=== PATIENT | female | born 1945 | race Caucasian/White ===

== ENCOUNTER 2019-10-04 15:59 | Inpatient (IN) | payer MEDICARE, MEDICAID, SELFPAY ==
[2019-10-04] VITALS (22 sets, daily range): BP systolic 89–141; BP diastolic 54–78; PULSE 91–115; RESP 23–40; TEMP 36.6–37.9; O2SAT 79–100
--- NOTE | ~2019-10-04 | XR_ITS ---
EXAMINATION: XR chest 1V portable DATE: 10/04/2019 17:35 INDICATION: Shortness of breath. TECHNIQUE: frontal view of the chest was obtained. COMPARISON: Chest radiograph dated 09/17/2017 FINDINGS: There are new increased indistinct interstitial pattern in the right mid to lower and left lower lung zones. No pleural effusion or pneumothorax. The cardiomediastinal silhouette is normal. Old healed r ight clavicle fracture deformity. IMPRESSION: 1. Bilateral lower lung predominant increased interstitial pattern, right greater than left which cou ld represent asymmetric pulmonary edema or pneumonia. Reviewed, dictated and finalized at location A. COMPRESSOR TURBINE OPERATOR IMPRESSION: 1. Bilateral lower lung predominant increased interstitial pattern, right great er than left which could represent asymmetric pulmonary edema or pneumonia.
--- NOTE | ~2019-10-04 | CT_ITS ---
EXAMINATION: CT cervical spine wo con DATE: 10/07/2019 10:57 INDICATION: Patient fell. Head trauma. TECHNIQUE: Computed tomography (CT) of the cervical spine was performed without intravenous contrast. Automated exposure control and iterative reconstruction technique were employed. Exam dose: 218.85 mGy-cm total exam DLP. COMPARISON: None FINDINGS: Examination is limited by motion. C1 and C2 are normally aligned and the odontoid process is intact. No fracture or dislocation or lock ed facet or prevertebral soft tissue swelling is evident. There is moderate degenerative disease at C4-5, moderately severe degenerative disease at C5-6. There is degenerative change at the apophyseal joints throughout the cervical spine and at the uncovertebr al joints at C4-5 and particularly C5-6. . IMPRESSION: Limited examination due to motion Degenerative changes No fracture or dislocation detected Reviewed, dictated and finalized at Location A. Reviewed, dictated and finalized at location A. ER BUFFER
--- NOTE | ~2019-10-04 | CT_ITS ---
EXAMINATION: CT brain wo con DATE: 10/07/2019 10:58 INDICATION: Fall. Head trauma. Dimension. Frequent headaches. TECHNIQUE: Computed tomography (CT) of the head was performed without intravenous contrast. The mA wa s adjusted according to patient size. Iterative reconstruction technique was employed. Exam dose: 60 5.33 mGy-cm total exam DLP. COMPARISON: 09/17/2019 CT brain FINDINGS: The examination is mildly limited by motion artifact. No intracranial mass lesion or hemorrhage or cerebrovascular accident, midline shift shift or mass ef fect is detected. No subdural or epidural hematoma. There is central and cortical cerebral atrophy. Bilateral carotid siphon internal carotid artery calcifications. Nonspecific diminished attenuation o f the cerebral white matter is likely due to chronic small vessel ischemic changes. No orbital mass lesion. Fluid level of left maxillary sinus. Mild mucoperiosteal thickening of the right maxillary sinus. Pro minent opacification of ethmoid air cells is noted bilaterally. There are fluid levels in both spheno id sinuses. The frontal sinuses are not developed. The mastoid air cells are normally developed and aerated IMPRESSION: Central and cortical cerebral atrophy Cerebral atherosclerosis and chronic small vessel ischemic changes of the cerebral white matter No acute intracranial finding No evidence of skull fracture Pansinusitis Reviewed, dictated and finalized at Location A. Reviewed, dictated and finalized at location A. R OPERATOR IMPRESSION: Central and cortical cerebral atrophy Cerebral atherosclerosis and chronic small vessel ischemic changes of the cereb ral white matter No acute intracranial finding No evidence of skull fracture Pansinusitis
--- NOTE | 2019-10-04 16:33 | ED.SOB ---
HPI - SOB/Dyspnea General Chief Complaint: Shortness of Breath/Dyspnea Stated Complaint: difficulty breathing Time Seen by Provider: 10/04/19 16:28 Source: patient, RN notes reviewed, old records reviewed and other (ED nurse) Mode of arrival: EMS Limitations: clinical condition History of Present Illness HPI Narrative: Pt is a 74 y/o female presenting to the ED via EMS c/o SOB. ED nurse reports the pt has been SOB since 1500 at her residence of [facility]. Pt's nurse states the pt was satting in the 70's earlier today in the ED and was placed on a non-rebreather by EMS. Per nurse, the pt has a Hx of COPD and is a Full Code. Per nurse, the pt is not normally on O2 at home. Pt also reports cough. Pt's nurse states the pt has had a UTI that has been unable to be resolved for months. Old medical records reveal the pt has Hx's of Dementia and Anxiety. HPI is limited due to pt's clinical condition. Most information provided by ED nurse and old medical records. Pertinent past history: COPD Onset (ago): hour(s) (1.5) Associated symptoms: cough Treatment prior to arrival: oxygen Related Data Home Medications Medication Instructions Recorded Confirmed Dulera 2 puff INHALATION BID 07/01/19 09/17/19 Lexapro 20 mg PO DAILY 07/01/19 09/17/19 divalproex 250 mg PO TID 07/01/19 09/17/19 donepezil 10 mg PO DAILY 07/01/19 09/17/19 memantine 10 mg PO BID 07/01/19 09/18/19 Spiriva Respimat 1 inh INHALATION QAM 07/23/19 09/17/19 acetaminophen [Tylenol Extra 1,000 mg PO TID 07/23/19 09/17/19 Strength] lidocaine [Lidoderm] 1 patch TOPICAL DAILY 07/23/19 09/18/19 lorazepam [Ativan] 1 mg PO Q6H PRN 07/23/19 09/18/19 naproxen [Naprosyn] 500 mg PO DAILY 07/23/19 09/17/19 Lactobacillus acidophilus 10/04/19 10/04/19 [Acidophilus] buspirone 10 mg PO BID 10/04/19 pneumococcal 23-chaparrita ps vaccine 0.5 ml IM ONCE 10/04/19 [Pneumovax 23] Allergies Allergy/AdvReac Type Severity Reaction Status Date / Time No Known Allergies Allergy Verified 09/16/19 18:22 Review of Systems Review of Systems: Narrative: ROS is limited due to pt's clinical condition. Most information provided by ED nurse. All systems reviewed & are unremarkable except as noted in HPI and below Respiratory: Respiratory: Reports cough and Reports dyspnea PMFSH Past Medical History Medical History (Updated 10/04/19 @ 19:30 by Randal Tamayo MD) Anxiety COPD (chronic obstructive pulmonary disease) Dementia Depression IBS (irritable bowel syndrome) UTI (urinary tract infection) Surgical History Surgical History History of cholecystectomy Family History Family History Unknown Family history unknown Social History Social History Social History: From [facility]. Smoking packs per day: 0.5 Smoking cigarettes per day: 10.0 Smoking status: Unknown if ever smoked Alcohol intake: unknown Substance use: unknown Gender identity (if verbalized by the patient): Female Course Vital Signs Vital signs: Vital Signs Temperature 37.9 C H 10/04/19 15:57 Pulse Rate 101 H 10/04/19 15:57 Respiratory Rate 34 H 10/04/19 15:57 Blood Pressure 97/55 L 10/04/19 15:57 Pulse Oximetry 79 L 10/04/19 15:57 Temperature 37.9 C H 10/04/19 15:57 Pulse Rate 100 10/04/19 18:30 Respiratory Rate 24 H 10/04/19 18:30 Blood Pressure 128/66 10/04/19 18:30 Pulse Oximetry 97 10/04/19 18:30 MDM - SOB/Dyspnea Lab Data Result diagrams: 10/04/19 16:42 10/04/19 16:42 Labs: Lab Results 10/04/19 10/04/19 10/04/19 Range/Units 16:42 16:42 16:42 WBC 16.0 H (4.5-10.0) K/mm3 RBC 3.79 L (4.2-5.4) M/mm3 Hgb 11.6 L (12.0-15.0) g/dL Hct 36.6 L (37.0-47.0) % MCV 96.6 (80-100) fl MCH 30.6 (26-34) pg MCHC 31.7 L (32-36) g
--- NOTE | 2019-10-04 16:34 | ECG_ITS ---
Measurements Intervals [place] Rate: 104 P: 64 VA: 144 QRS: 34 QRSD: 76 T: 60 QT: 324 QTc: 427 Interpretive Statements SINUS TACHYCARDIA BASELINE ARTIFACT- I, II, III, AVR, AVL, AVF, V4-V6 ABNORMAL ECG Electronically Signed On 10-04-2019 19:48:22 CATTYMAN by Bay Whitney D.O.
--- NOTE | 2019-10-04 16:45 | PC.NURSE ---
Pt attempting to pull on IV and get out of bed. placed on bed alarm
[2019-10-04 16:53] LABS: Basophils Absolute Auto 0.1 K/mm3 (0.0-0.1); Basophils Percent Auto 0.7 % (0.2-1.2); Eosinophils Percent Auto 0.1 % (0-4.4); Hematocrit 36.6 % (37.0-47.0); Hemoglobin 11.6 g/dL (12.0-15.0); Immature Granulocyte Absolute 0.07 K/mm3 (0.00-0.031); Immature Granulocyte Percent A 0.4 % (0-0.5); Lymphocytes Absolute Auto 1.04 K/mm3 (0.9-3.2); Lymphocytes Percent Auto 6.5 % (18.3-44.2); Mean Corpuscular HGB Conc 31.7 g/dl (32-36); Mean Corpuscular Hemoglobin 30.6 pg (26-34); Mean Corpuscular Volume 96.6 fl (80-100); Monocytes Absolute Auto 0.7 K/mm3 (0.1-0.6); Monocytes Percent Auto 4.6 % (2.6-8.5); Neutrophils Percent Auto 87.7 % (45.5-73.1); Platelet Count Result 271 k/mm3 (150-375); Red Blood Count 3.79 M/mm3 (4.2-5.4); Red Cell Distribution Width 15.6 % (11.5-14.5)
[2019-10-04] MEDS: ALBUTEROL SULFATE NEB 2.5 MG/0.5 ML INH 5 MG INHALATION ×2 (16:55→19:56)
[2019-10-04 16:58] LABS: Add Urine Microscopic? YES; Appearance Urine Clear (Clear); Bacteria Urine Trace /hpf; Bilirubin Urine Negative (Negative); Blood Urine 1+ (Negative); Color Urine Yellow (Yellow); Glucose Urine UA Negative (Negative); Ketones Urine 1+ mg/dL (Negative); Leukocyte Esterase Ur Negative LEU/UL (Negative); Mucus Urine Rare /lpf; Nitrate Urine Negative (Negative); Protein Urine 2+ mg/dL (Negative); RBC Urine 0-2 /hpf (0-2); Specific Grav Ur 1.025 (1.001-1.035); Squamous Epithelial Cell Urine Occasional /hpf (Few); Urobilinogen Urine Negative mg/dL (<2.0)
--- NOTE | 2019-10-04 17:01 | PC.NURSE ---
spoke with shantell banda about order for PO tylenol in relation to the pt being on bipap. SHANTELL states that he wants the order changed to 1G [facility]P [facility].
[2019-10-04 17:03] LABS: INR 1.1; Prothrombin Time 14.1 Seconds (11.1-14.7)
[2019-10-04 17:04] LABS: Partial Thromboplastin Time 37.8 SECONDS (22.3-36.8)
[2019-10-04] MEDS: SODIUM CHLORIDE 0.9% IV 1,000 ML 999 ML IV CONT (17:06)
[2019-10-04 17:07] LABS: Lactic Acid Reflex 1.2 mmol/L (0.7-2.1)
[2019-10-04 17:24] LABS: Alanine Aminotransferase 14 U/L (4-35); Albumin Level 3.7 g/dL (3.5-5.1); Alkaline Phosphatase 110 U/L (38-126); Aspartate Amino Transferase 37 U/L (14-36); Bilirubin,Total 0.4 mg/dL (0.2-1.3); Blood Urea Nitrogen 29 mg/dL (7-17); Calcium 8.9 mg/dL (8.4-10.2); Carbon Dioxide 29 mmol/L (22-30); Chloride 99 mmol/L (98-107); Estimated Glomerular Filt Rate > 60; Glucose 82 mg/dL (65-105); Potassium 4.5 mmol/L (3.4-5.0); Sodium 142 mmol/L (137-145)
[2019-10-04 17:43] LABS: CRP 39.5 mg/dL (<1.0)
[2019-10-04 20:27] LABS: Alveolar/Arterial O2 Gradient 291.8 mmHg; Base Excess ABG -1.6 mEq/l (+/-2.0); Carboxyhemoglobin 0.2 % THb (0-2.0); Fractional Inspired Oxygen 60 %; HCO3 ABG 23.3 mEq/l (22.0-26.0); Methemoglobin ABG 0.3 %THb (0-1.5); Oxyhemoglobin 95.7 % THb (90.0-100.0); PCO2 ABG 39.6 mmHg (35.0-45.0); PO2 ABG 92.4 mmHg (80.0-100.0); PO2 FiO2 Ratio Arterial Blood 1.54 %; Reduced Hemoglobin 3.8 %THb (0-5.0); Total Hemoglobin 10.3 g/dL (12.0-18.0); pH ABG 7.387 (7.350-7.450)
[2019-10-04 20:28] LABS: Modified Allen's Test Pass; Site Drawn LEFT RADIAL
[2019-10-04 20:29] LABS: Device BIPAP
[2019-10-04 20:30] LABS: Expiratory Pressure 6 cmH2O; Inspiratory Pressure 12 cmH2O
--- NOTE | 2019-10-04 20:40 | PM.IMHP ---
H&P: HPI History of Present Illness Chief complaint: Difficulty breathing, hypoxia Narrative: Annita Nam is a 74 year old female with a past medical history of dementia, COPD, and recent hospitalization for ESBL UTI who presented back to the ER with difficulty breathing and shortness of breath be EMS from [facility]. The patient's oxygen saturations were reportedly in the 70s at the group home. Patient was placed on a non-rebreather by EMS which improved her oxygen saturations to the low 90s. When she arrived to the ER her oxygen saturations were in the mid 80s on 5 L nasal cannula. The patient was also on febrile on arrival with a temperature of 100.3?. To the ER the patient was restless with labored breathing and was not answering questions. The patient's respiratory rate was in the mid 30 she was placed on BiPAP with improvement in her respiratory rate down to 24. Her ABG which was obtained several hours after she had been on BiPAP was unremarkable. The patient had been hospitalized September 17 through the due to ESBL E coli she was discharged on nitrofurantoin. At the time of discharge was 9,300 but today was back up to 16,000. Her influenza screen was positive for influenza A. She initially arrived to the ER was soft at 97/55 but improved 140/76. Repeat blood pressure prior to being discharged from the ER was 89/60 and 94/62. She received 1 dose of IV Tylenol in the ER as well as Levaquin and 1 L of normal saline. At the time of arrival to the intermediate unit the patient was agitated. The patient was threatening to knock the respiratory therapist glasses off her face if she touched her. She repetitively is asking staff why she is in the hospital. Patient was not in any respiratory distress at the time of my evaluation and an attempt was made to wean the patient to 4 L nasal cannula. The patient was unable fried any significant review of systems. Review of Systems Review of Systems: ROS unobtainable: unobtainable due to mental condition PMFSH Past Medical History Medical History (Updated 10/04/19 @ 20:58 by Berta Peguero DO) Anxiety COPD (chronic obstructive pulmonary disease) Dementia Depression IBS (irritable bowel syndrome) UTI (urinary tract infection) Surgical History Surgical History History of cholecystectomy Family History Family History Unknown Family history unknown Social History Social History (Updated 10/04/19 @ 20:50 by Berta Peguero DO) Social History: Primary care physician: Dr. Jasper Painting Code status: Full code per EMR Smoking packs per day: 0.5 Smoking cigarettes per day: 10.0 Years smoked: 20 Smoking pack-years: 10.00 Smoking status: Former smoker Tobacco type: cigarettes Second hand tobacco smoke exposure: No Alcohol intake: unknown Substance use: unknown Living arrangements: group home Additional living arrangements comments: [facility]. Gender identity (if verbalized by the patient): Female Spiritual care concerns: No Agree to blood products: Yes Meds Home Medications and Allergies Home Medications Medication Instructions Recorded Confirmed Type Dulera 2 puff INHALATION BID 07/01/19 10/04/19 History divalproex 250 mg PO TID 07/01/19 10/04/19 History donepezil 10 mg PO DAILY 07/01/19 10/04/19 History escitalopram oxalate 10 mg PO DAILY #0 07/01/19 10/04/19 History memantine 10 mg PO BID 07/01/19 10/04/19 History Spiriva Respimat 1 inh INHALATION QAM 07/23/19 10/04/19 History acetaminophen [Tylenol Extra 1,000 mg PO TID PRN 07/23/19 10/04/19 History Strength] lidocaine [Lidoderm] 1 patch TOPICAL DAILY 07/23/19 10/04/19 History lorazepam [Ativan] 1 mg PO Q6H PRN 07/23/19 10/04/19 History naproxen [Naprosyn] 500 mg PO DAILY PRN 07/23/19 10/04/19 History Lactobacillus acidophilus 2 cap PO BID
--- NOTE | 2019-10-04 21:05 | ADMGEN ---
This patient, Annita Nam, was admitted to IMU Room 231-01. Patient/family oriented to hospital policies and general routines including ID bracelet, bed and alarms, visiting hours, pain management, procedures, bathroom and other care routines, personal items, smoking policy, room service/diet, and visiting hours. Valuables list has been completed. Information on how to activate the Rapid Response Team has been discussed. Patient/Family are encouraged to report perceived risks to care and to ask questions if they do not understand what they are told or what they should do.
[2019-10-04] MEDS: QUEtiapine FUMARATE 25 MG TABLET PO (22:00)
[2019-10-04] MEDS: OSELTAMIVIR PHOSPHATE 75 MG CAP PO (23:20)
[2019-10-04] MEDS: LACTATED RINGERS 1,000 ML 75 ML IV CONT (23:33)
[2019-10-05] VITALS (17 sets, daily range): BP systolic 97–125; BP diastolic 46–60; PULSE 80–98; RESP 16–34; TEMP 36.7–37.2; O2SAT 92–100
[2019-10-05] MEDS: DIVALPROEX SODIUM 250 MG TABEC PO ×3 (01:00→18:10)
[2019-10-05] MEDS: busPIRone HCL 10 MG TABLET PO ×3 (01:01→18:10)
[2019-10-05] MEDS: LORAZEPAM 0.5 MG TABLET 1 MG PO ×3 (01:01→23:55)
--- NOTE | 2019-10-05 08:53 | PM.IMPN ---
Progress Note: A&P Assessment and Plan (1) Influenza A with pneumonia: Code(s): J09.X1 - Influenza due to identified novel influenza A virus with pneumonia Status: Acute Assessment and Plan: Continue oseltamivir day 1 (2) COPD (chronic obstructive pulmonary disease): Qualifiers: COPD type: COPD with acute lower respiratory infection Qualified Code(s): J44.0 - Chronic obstructive pulmonary disease with (acute) lower respiratory infection Code(s): J44.9 - Chronic obstructive pulmonary disease, unspecified Status: Chronic Assessment and Plan: Vanc, Zosyn day 1 Steroids, bronchodilators (3) Acute respiratory failure with hypoxemia: Code(s): J96.01 - Acute respiratory failure with hypoxia Status: Acute Assessment and Plan: As no CO2 retention at admission, she should not require bipap Oxygen per guidelines (4) Dementia: Qualifiers: Dementia behavioral disturbance: with behavioral disturbance Dementia type: unspecified type Qualified Code(s): F03.91 - Unspecified dementia with behavioral disturbance Code(s): F03.90 - Unspecified dementia without behavioral disturbance Status: Acute Assessment and Plan: Continue home regimen Subjective Date/time seen: 10/05/19 08:53 Interval history: Agitated. Confused. Trying to take off BiPAP. Review of Systems Review of Systems: ROS unobtainable: unobtainable due to mental status Exam Narrative: Exam Narrative: HEENT: EOMI, PERRL, pharyngeal mucosa pink and intact NECK: No JVD CHEST: Coarse BS HEART: NL S1/S2, regular, no murmur ABDOMEN: BS+, soft, nontender, no mass, no bruits EXTREMITIES: No cyanosis, edema, or clubbing NEUROLOGIC: CN intact and symmetric to inspection. MUSCULOSKELETAL: Tone and strength symmetric. PSYCH: Alert. Agitated. Oriented to person only. Objective Data Vital Signs Vital Signs: Vital Signs - 24 hr 10/04/19 15:57 10/04/19 16:11 10/04/19 16:26 Temperature 100.3 F H Pulse Rate 101 H 101 H 105 H Respiratory Rate 34 H 34 H Blood Pressure 97/55 L 140/76 Pulse Oximetry 79 L 88 L 10/04/19 16:31 10/04/19 16:34 10/04/19 16:52 Temperature Pulse Rate 104 H 99 Respiratory Rate 33 H 33 H Blood Pressure 141/78 H 134/69 Pulse Oximetry 85 L 91 99 10/04/19 16:57 10/04/19 16:58 10/04/19 17:16 Temperature Pulse Rate 107 H 98 115 H Respiratory Rate 31 H 32 H 30 H Blood Pressure 89/60 L Pulse Oximetry 97 10/04/19 17:30 10/04/19 18:30 10/04/19 18:34 Temperature 99.2 F Pulse Rate 115 H 100 Respiratory Rate 35 H 24 H Blood Pressure 128/66 Pulse Oximetry 97 10/04/19 19:29 10/04/19 19:40 10/04/19 19:45 Temperature 99.2 F Pulse Rate 92 96 91 Respiratory Rate 27 H 33 H 24 H Blood Pressure 98/54 L Pulse Oximetry 94 10/04/19 19:56 10/04/19 20:21 10/04/19 20:51 Temperature 98.2 F 98.0 F Pulse Rate 91 100 95 Respiratory Rate 24 H 28 H 23 H Blood Pressure 94/62 L 99/61 L Pulse Oximetry 97 98 10/04/19 21:25 10/04/19 22:18 10/04/19 22:25 Temperature 97.9 F Pulse Rate 97 92 92 Respiratory Rate 24 H 24 H Blood Pressure 126/54 L Pulse Oximetry 98 98 10/04/19 23:54 10/05/19 00:00 10/05/19 02:00 Temperature 98 F Pulse Rate 93 90 88 Respiratory Rate 40 H 28 H Blood Pressure 120/60 Pulse Oximetry 100 100 10/05/19 03:39 10/05/19 03:53 10/05/19 04:00 Temperature 98.9 F Pulse Rate 88 98 85 Respiratory Rate 24 H 30 H 24 H Blood Pressure 97/53 L Pulse Oximetry 100 98 99 10/05/19 05:59 10/05/19 08:00 Temperature 98.9 F Pulse Rate 88 83 Respiratory Rate 34 H Blood Pressure 125/60 Pulse Oximetry 100 Intake/Output Intake/Output: Intake & Output 10/02/19 10/03/19 10/04/19 10/05/19 23:59 23:59 23:59 23:59 Intake Total 1300 445 Balance 1300 445 Meds/Results Medications: Active Medications Generic Name Dose Route Start Last Admin Trade Name
[2019-10-05] MEDS: methylPREDNISolone SOD SUCC 40 MG VIAL IV PUSH (09:22)
[2019-10-05] MEDS: MEMANTINE 10 MG TABLET PO ×2 (09:23→18:10)
[2019-10-05] MEDS: ACIDOPHILUS/BULGARICUS CHEWABLE TABLET 2 TABLET PO (09:23)
[2019-10-05] MEDS: ASPIRIN 81 MG ENTERIC TABLET PO (09:23)
[2019-10-05] MEDS: OSELTAMIVIR PHOSPHATE 75 MG CAP PO ×2 (09:23→23:55)
[2019-10-05] MEDS: ENOXAPARIN 40 MG/0.4 ML SYRINGE SUB-Q (09:24)
[2019-10-05] MEDS: ALBUTEROL SULFATE NEB 2.5 MG/0.5 ML INH 5 MG INHALATION ×3 (09:56→21:01)
[2019-10-05] MEDS: IPRATROPIUM BR 0.02% INH SOLN 0.5 MG/2.5 ML VIAL INHALATION ×3 (09:56→21:01)
[2019-10-05 10:12] LABS: Hematocrit 28.5 % (37.0-47.0); Mean Corpuscular HGB Conc 31.6 g/dl (32-36); Mean Corpuscular Hemoglobin 30.6 pg (26-34); Mean Corpuscular Volume 96.9 fl (80-100); Mean Platelet Volume 10.3 fl (7.4-10.4); Platelet Count Result 220 k/mm3 (150-375); Red Blood Count 2.94 M/mm3 (4.2-5.4); Red Cell Distribution Width 15.7 % (11.5-14.5); White Blood Count 11.5 K/mm3 (4.5-10.0)
[2019-10-05 10:30] LABS: Blood Urea Nitrogen 23 mg/dL (7-17); Calcium 8.2 mg/dL (8.4-10.2); Carbon Dioxide 27 mmol/L (22-30); Chloride 104 mmol/L (98-107); Estimated CRCL calculation 59 ml/min; Estimated Glomerular Filt Rate > 60; Glucose 92 mg/dL (65-105); Potassium 4.2 mmol/L (3.4-5.0); Sodium 142 mmol/L (137-145)
--- NOTE | 2019-10-05 11:17 | PCRCNOTE ---
10/05/19 0200 administration:Window of time for administration has passed. See next scheduled administration.
[2019-10-05] MEDS: LACTATED RINGERS 1,000 ML 75 ML IV CONT (13:16)
--- NOTE | 2019-10-05 15:06 | PC.NURSE ---
This patient, Annita Nam, was transferred to [facility] on 10/05/19 at 1506. Personal belongings sent with patient. Belongings list checked and signed with receiving RN. Report given to CRISTY Azevedo. Appropriate documentation sent with patient.
[2019-10-06] VITALS (13 sets, daily range): BP systolic 107–123; BP diastolic 47–65; PULSE 65–82; RESP 18–20; TEMP 36.4–36.7; O2SAT 91–97
[2019-10-06] MEDS: IPRATROPIUM BR 0.02% INH SOLN 0.5 MG/2.5 ML VIAL INHALATION ×4 (02:35→20:41)
[2019-10-06] MEDS: ALBUTEROL SULFATE NEB 2.5 MG/0.5 ML INH 5 MG INHALATION ×4 (02:35→20:41)
[2019-10-06] MEDS: LACTATED RINGERS 1,000 ML 75 ML IV CONT ×2 (04:44→19:01)
[2019-10-06 06:42] LABS: Hematocrit 30.1 % (37.0-47.0); Hemoglobin 9.1 g/dL (12.0-15.0); Mean Corpuscular HGB Conc 30.2 g/dl (32-36); Mean Corpuscular Hemoglobin 29.8 pg (26-34); Mean Corpuscular Volume 98.7 fl (80-100); Mean Platelet Volume 11.3 fl (7.4-10.4); Platelet Count Result 228 k/mm3 (150-375); Red Blood Count 3.05 M/mm3 (4.2-5.4); Red Cell Distribution Width 16.1 % (11.5-14.5); White Blood Count 10.5 K/mm3 (4.5-10.0)
[2019-10-06 06:55] LABS: Blood Urea Nitrogen 21 mg/dL (7-17); Calcium 8.5 mg/dL (8.4-10.2); Carbon Dioxide 24 mmol/L (22-30); Chloride 105 mmol/L (98-107); Estimated CRCL calculation 60 ml/min; Estimated Glomerular Filt Rate > 60; Glucose 104 mg/dL (65-105); Potassium 4.3 mmol/L (3.4-5.0); Sodium 141 mmol/L (137-145)
--- NOTE | 2019-10-06 10:48 | PC.NURSE ---
This nurse was trying to give medications to this patient, meds were crushed and placed in ice cream since this is how the patient takes medication. When giving this patient medication the patient spit it back out and threatened to hit staff. Patient went back to sleep. This nurse will administer medication when the patient is more awake and willing to take medication.
--- NOTE | 2019-10-06 13:55 | PC.NURSE ---
Patient refuses morning medication and is threatening to hit staff. After multiple attempts to administer medication the patient still refused. Dr. Manning notified @1300, order to hold PO medication until he has a chance to assess her.
--- NOTE | 2019-10-06 15:44 | PM.IMPN ---
Progress Note: A&P Assessment and Plan (1) Influenza A with pneumonia: Code(s): J09.X1 - Influenza due to identified novel influenza A virus with pneumonia Status: Acute Assessment and Plan: Continue oseltamivir day 2 (2) COPD (chronic obstructive pulmonary disease): Qualifiers: COPD type: COPD with acute lower respiratory infection Qualified Code(s): J44.0 - Chronic obstructive pulmonary disease with (acute) lower respiratory infection Code(s): J44.9 - Chronic obstructive pulmonary disease, unspecified Status: Chronic Assessment and Plan: Vanc, Zosyn day 2 Steroids, bronchodilators (3) Acute respiratory failure with hypoxemia: Code(s): J96.01 - Acute respiratory failure with hypoxia Status: Acute Assessment and Plan: Oxygen per guidelines (4) Dementia: Qualifiers: Dementia behavioral disturbance: with behavioral disturbance Dementia type: unspecified type Qualified Code(s): F03.91 - Unspecified dementia with behavioral disturbance Code(s): F03.90 - Unspecified dementia without behavioral disturbance Status: Acute Assessment and Plan: Continue home regimen Avoid sedation When she is partaking of oral nutrition, she may return to the facility Subjective Date/time seen: 10/06/19 15:44 Interval history: Combative during the night. Received lorazepam at 12AM. Sleeping since. Did not eat yet today. Review of Systems Review of Systems: ROS unobtainable: unobtainable due to mental status Exam Const: Other: HEENT: Appears symmetric. Not cooperative with exam. NECK: No JVD CHEST: Coarse breath sounds right lung. Left lung clear anteriorly. HEART: NL S1/S2, regular, no murmur ABDOMEN: BS+, soft, nontender, no mass, no bruits EXTREMITIES: No cyanosis, edema, or clubbing NEUROLOGIC: CN intact and symmetric to inspection. MUSCULOSKELETAL: Tone and strength symmetric. PSYCH: Drowsy. Arouses to touch. Attempts to strike the examiner with her left hand. Objective Data Vital Signs Vital Signs: Vital Signs - 24 hr 10/05/19 16:14 10/05/19 16:19 10/05/19 21:02 Temperature Pulse Rate 92 90 88 Respiratory Rate 20 20 20 Blood Pressure Pulse Oximetry 10/05/19 21:16 10/06/19 00:00 10/06/19 02:35 Temperature 97.8 F Pulse Rate 91 67 66 Respiratory Rate 20 18 20 Blood Pressure 123/64 Pulse Oximetry 92 97 10/06/19 02:46 10/06/19 06:00 10/06/19 08:39 Temperature 97.6 F Pulse Rate 69 65 70 Respiratory Rate 20 20 18 Blood Pressure 123/62 Pulse Oximetry 94 91 10/06/19 08:46 10/06/19 14:00 Temperature 97.6 F Pulse Rate 76 71 Respiratory Rate 20 18 Blood Pressure 114/65 Pulse Oximetry 95 Intake/Output Intake/Output: Intake & Output 10/03/19 10/04/19 10/05/19 10/06/19 23:59 23:59 23:59 23:59 Intake Total 1300 1555 995 Output Total 600 Balance 1300 955 995 Meds/Results Medications: Active Medications Generic Name Dose Route Start Last Admin Trade Name Freq PRN Reason Stop Dose Admin Acetaminophen 650 mg 10/04/19 23:00 Tylenol Tablet PO Q4H PRN Mild Pain (1-3) or Fever Albuterol 5 mg 10/04/19 20:00 10/06/19 08:38 Albuterol Sulf Neb 2.5mg/0.5ml INHALATION 5 mg Q6HRT ALFONSO Administration Aspirin 81 mg 10/05/19 09:00 10/06/19 13:52 Aspirin Ec PO Not Given DAILY [facility] Budesonide/Formoterol Fumarate 2 puff 10/05/19 08:00 10/06/19 08:38 Symbicort 160-4.5 Mcg (*Sp) Inhaler INHALATION 2 puff Q12HRT ALFONSO Administration Buspirone HCl 10 mg 10/04/19 23:25 10/06/19 13:52 Buspar PO Not Given BID ALFONSO Divalproex Sodium 250 mg 10/04/19 23:25 10/06/19 13:53 Depakote Ec Tab PO 11/03/19 23:26 Not Given TID ALFONSO Enoxaparin Sodium 40 mg 10/05/19 09:00 10/06/19 09:40 Lovenox SUB-Q 40 mg DAILY ALFONSO Administration Lactated Ringer's 1,000 mls @ 75 mls/hr 10/04/19 19:30 10/06/19 04:44 Lr -
[2019-10-06] MEDS: MEMANTINE 10 MG TABLET PO (17:38)
[2019-10-06] MEDS: DIVALPROEX SODIUM 250 MG TABEC PO (17:39)
[2019-10-06] MEDS: busPIRone HCL 10 MG TABLET PO (17:39)
[2019-10-06] MEDS: ACIDOPHILUS/BULGARICUS CHEWABLE TABLET 2 TABLET PO (17:40)
[2019-10-06] MEDS: OSELTAMIVIR PHOSPHATE 75 MG CAP PO (20:39)
[2019-10-07] VITALS (7 sets, daily range): BP systolic 130–158; BP diastolic 73–91; PULSE 51–82; RESP 16–24; TEMP 36.9; O2SAT 88–94
[2019-10-07 02:10] LABS: Vancomycin Trough 6.7 ug/mL (10.0-20.0)
[2019-10-07] MEDS: IPRATROPIUM BR 0.02% INH SOLN 0.5 MG/2.5 ML VIAL INHALATION ×2 (02:21→08:50)
[2019-10-07] MEDS: ALBUTEROL SULFATE NEB 2.5 MG/0.5 ML INH 5 MG INHALATION ×2 (02:21→08:50)
[2019-10-07] MEDS: LACTATED RINGERS 1,000 ML 75 ML IV CONT (05:15)
[2019-10-07 06:34] LABS: Hematocrit 29.1 % (37.0-47.0); Hemoglobin 9.1 g/dL (12.0-15.0); Mean Corpuscular HGB Conc 31.3 g/dl (32-36); Mean Corpuscular Hemoglobin 29.9 pg (26-34); Mean Corpuscular Volume 95.7 fl (80-100); Mean Platelet Volume 10.3 fl (7.4-10.4); Platelet Count Result 283 k/mm3 (150-375); Red Blood Count 3.04 M/mm3 (4.2-5.4); White Blood Count 9.9 K/mm3 (4.5-10.0)
[2019-10-07 06:42] LABS: Blood Urea Nitrogen 17 mg/dL (7-17); Carbon Dioxide 30 mmol/L (22-30); Chloride 104 mmol/L (98-107); Estimated CRCL calculation 52 ml/min; Estimated Glomerular Filt Rate > 60; Glucose 96 mg/dL (65-105); Potassium 3.3 mmol/L (3.4-5.0); Sodium 141 mmol/L (137-145)
--- NOTE | 2019-10-07 09:52 | PM.IMPN ---
Progress Note: A&P Assessment and Plan (1) Influenza A with pneumonia: Code(s): J09.X1 - Influenza due to identified novel influenza A virus with pneumonia Status: Acute Assessment and Plan: Continue oseltamivir day 3 (2) COPD (chronic obstructive pulmonary disease): Qualifiers: COPD type: COPD with acute lower respiratory infection Qualified Code(s): J44.0 - Chronic obstructive pulmonary disease with (acute) lower respiratory infection Code(s): J44.9 - Chronic obstructive pulmonary disease, unspecified Status: Chronic Assessment and Plan: Vanc, Zosyn d/c, start po doxycycline Steroids, bronchodilators (3) Acute respiratory failure with hypoxemia: Code(s): J96.01 - Acute respiratory failure with hypoxia Status: Acute Assessment and Plan: Oxygen per guidelines (4) Dementia: Qualifiers: Dementia behavioral disturbance: with behavioral disturbance Dementia type: unspecified type Qualified Code(s): F03.91 - Unspecified dementia with behavioral disturbance Code(s): F03.90 - Unspecified dementia without behavioral disturbance Status: Acute Assessment and Plan: Continue home regimen Avoid sedation She ate last night (5) Fall: Qualifiers: Encounter type: subsequent encounter Qualified Code(s): W19.XXXD - Unspecified fall, subsequent encounter Code(s): W19.XXXA - Unspecified fall, initial encounter Status: Acute Assessment and Plan: No focal findings CT head and C-spine w/o contrast To NH today if scans negative Subjective Date/time seen: 10/07/19 09:52 Interval history: Agitated this AM. Fell in room. Struck head. No LOC. C/o aching all over. Alert. Agitated. Was swinging at staff who were helping her off the commode when she fell. Review of Systems Review of Systems: ROS unobtainable: unobtainable due to mental status Exam Narrative: Exam Narrative: HEENT: EOMI, PERRL, pharyngeal mucosa pink and intact NECK: No JVD CHEST: Coarse BS HEART: NL S1/S2, regular, no murmur ABDOMEN: BS+, soft, nontender, no mass, no bruits EXTREMITIES: No cyanosis, edema, or clubbing NEUROLOGIC: CN intact and symmetric to inspection. MUSCULOSKELETAL: Tone and strength symmetric. PSYCH: Alert. Agitated. Oriented to person only. Objective Data Vital Signs Vital Signs: Vital Signs - 24 hr 10/06/19 14:00 10/06/19 16:01 10/06/19 16:09 Temperature 97.6 F Pulse Rate 71 68 68 Respiratory Rate 18 18 18 Blood Pressure 114/65 Pulse Oximetry 95 10/06/19 20:41 10/06/19 20:46 10/06/19 20:48 Temperature Pulse Rate 69 67 Respiratory Rate 18 18 Blood Pressure Pulse Oximetry 94 10/06/19 22:00 10/07/19 02:22 10/07/19 02:31 Temperature 98.0 F Pulse Rate 82 82 73 Respiratory Rate 18 18 18 Blood Pressure 107/47 L Pulse Oximetry 92 10/07/19 06:00 10/07/19 08:50 10/07/19 09:00 Temperature 98.4 F Pulse Rate 73 80 80 Respiratory Rate 16 18 18 Blood Pressure 130/73 Pulse Oximetry 94 10/07/19 09:02 Temperature Pulse Rate Respiratory Rate Blood Pressure Pulse Oximetry 92 Intake/Output Intake/Output: Intake & Output 10/04/19 10/05/19 10/06/19 10/07/19 23:59 23:59 23:59 23:59 Intake Total 1300 1555 2335 1430 Output Total 600 400 Balance 1831 359 4432 1030 Meds/Results Medications: Active Medications Generic Name Dose Route Start Last Admin Trade Name Freq PRN Reason Stop Dose Admin Acetaminophen 650 mg 10/04/19 23:00 Tylenol Tablet PO Q4H PRN Mild Pain (1-3) or Fever Albuterol 5 mg 10/04/19 20:00 10/07/19 08:50 Albuterol Sulf Neb 2.5mg/0.5ml INHALATION 5 mg Q6HRT [facility] Administration Aspirin 81 mg 10/05/19 09:00 10/06/19 13:52 Aspirin Ec PO Not Given DAILY [facility] Budesonide/Formoterol Fumarate 2 puff 10/05/19 08:00 10/07/19 08:50 Symbicort 160-4.5 Mcg (*Sp) Inhaler INHALATION 2 puff
[2019-10-07] MEDS: LORAZEPAM INJ 2 MG/ML VIAL 0.5 MG IV PUSH (09:57)
--- NOTE | 2019-10-07 12:09 | PC.NURSE ---
Family member Ree CARRANZA was called @1209 with no answer. A voicemail was left asking to give this nurse a call back to notify her of her family member falling with no injuries post fall.
--- NOTE | 2019-10-07 12:16 | PM.DS ---
DS: Diagnosis Admitting Diagnosis Admitting Diagnosis: Influenza due to unidentified influenza virus with unspecified type of pneumonia Discharge Diagnosis (1) Influenza A with pneumonia: Code(s): J09.X1 - Influenza due to identified novel influenza A virus with pneumonia Status: Acute Assessment and Plan: Continue oseltamivir (2) COPD (chronic obstructive pulmonary disease): Qualifiers: COPD type: COPD with acute lower respiratory infection Qualified Code(s): J44.0 - Chronic obstructive pulmonary disease with (acute) lower respiratory infection Code(s): J44.9 - Chronic obstructive pulmonary disease, unspecified Status: Chronic Assessment and Plan: Vanc, Zosyn d/c, start po doxycycline Steroids, bronchodilators (3) Acute respiratory failure with hypoxemia: Code(s): J96.01 - Acute respiratory failure with hypoxia Status: Acute Assessment and Plan: Oxygen per guidelines (4) Dementia: Qualifiers: Dementia behavioral disturbance: with behavioral disturbance Dementia type: unspecified type Qualified Code(s): F03.91 - Unspecified dementia with behavioral disturbance Code(s): F03.90 - Unspecified dementia without behavioral disturbance Status: Acute Assessment and Plan: Continue home regimen (5) Fall: Qualifiers: Encounter type: subsequent encounter Qualified Code(s): W19.XXXD - Unspecified fall, subsequent encounter Code(s): W19.XXXA - Unspecified fall, initial encounter Status: Acute Assessment and Plan: No focal findings CT head and C-spine w/o contrast negative To NH today DS: Summary Hospital Course Reason for hospitalization: Dyspnea Hospital Course: Presented to emergency department from retirement with increasing dyspnea. Chest x-ray revealed infiltrates. Treated with vancomycin and Zosyn and Tamiflu due to being flu positive. She gradually improved was transition oral medication and discharged back to [facility]. She was eating adequately at the time of discharge and at her baseline mental status. Status at Discharge Overall status at discharge: patient is progressing back to baseline Time Spent with Patient Time attestation: Total time spent providing and/or coordinating discharge services:36 min Exam Narrative: Exam Narrative: HEENT: EOMI, PERRL, pharyngeal mucosa pink and intact NECK: No JVD CHEST: Coarse BS HEART: NL S1/S2, regular, no murmur ABDOMEN: BS+, soft, nontender, no mass, no bruits EXTREMITIES: No cyanosis, edema, or clubbing NEUROLOGIC: CN intact and symmetric to inspection. MUSCULOSKELETAL: Tone and strength symmetric. PSYCH: Alert. Agitated. Oriented to person only. DS: Data Data Completed and Pending Labs on day of discharge: Labs from last 24 hours 10/07/19 10/07/19 10/07/19 05:41 05:41 01:17 WBC 9.9 RBC 3.04 L Hgb 9.1 L Hct 29.1 L MCV 95.7 MCH 29.9 MCHC 31.3 L RDW 16.0 H Plt Count 283 MPV 10.3 Sodium 141 Potassium 3.3 L Chloride 104 Carbon Dioxide 30 BUN 17 Creatinine 0.70 Estim Creat Clear Calc 52 Estimated GFR > 60 Glucose 96 Calcium 8.0 L Vancomycin Trough 6.7 L Preliminary micro results at discharge 10/04/19 16:42 Blood Culture - Preliminary Blood 10/04/19 16:42 Blood Culture - Preliminary Blood Discharge Plan Discharge Attending physician on discharge: Shun Manning Consulting providers: Bay Whitney ; Jose Dockery ; Berta Peguero Discharging Clinician: Shun Manning Patient Disposition: [facility] Alf/Asst Living Activity: as tolerated Diet: other - see discharge instructions Discharge Instructions: Diet: soft and bite sized foods Patient Instructions: Antibiotic Form Stand Alone Forms: General Discharge Information, [facility] Discharge Discharge Medications: New prednisone 20 mg Tablet
--- NOTE | 2019-10-07 13:57 | PC.NURSE ---
Patient discharged back to [facility] @1396. No return call from family member DILLON Bhakta. IV line removed, CT scans negative from fall. Patient transported via EMS.
== END 2019-10-07 13:45 | DRG 193 ==
LOC: ANHED 16:33 → ANHIMU 20:01 → ANH3MEDSUR 10-05 14:55
PROVIDERS: Family Medicine; Internal Medicine; Admitting Provider Internal Medicine; Emergency Provider Emergency Medicine; PCP Internal Medicine; Visit Provider Internal Medicine
DX: J11.00 Influenza due to unidentified influenza virus with unspecified type of pneumonia (principal); J96.01 Acute respiratory failure with hypoxia; J44.0 Chronic obstructive pulmonary disease with (acute) lower respiratory infection; F03.91 Unspecified dementia, unspecified severity, with behavioral disturbance; W18.12XA Fall from or off toilet with subsequent striking against object, initial encounter; F41.9 Anxiety disorder, unspecified; K58.9 Irritable bowel syndrome, unspecified; Z90.49 Acquired absence of other specified parts of digestive tract
CPT/HCPCS: 36415; 36600; 51701; 70450; 71045; 72125; 80048; 80053; 80202; 81001; 82375; 82805; 83050; 83605; 83735; 85025; 85027; 85610; 85730; 86140; 87040; 87086; 87804; 93005; 94640; 94660; 96361; 96365; 96367; 96368; 96375; 99285; A9270; J0131; J1650; J1956; J2060; J2543; J2920; J3370; J7030; J7120; J7512